=== PATIENT | female | born 1945 | race Caucasian/White ===

== ENCOUNTER 2023-07-14 07:11 | Inpatient (IN) | payer OTHER ==
[~2023-07-14] VITALS: Ht 157.5 cm; Wt 112.0 kg
[2023-07-14] VITALS (9 sets, daily range): BP systolic 117–153; BP diastolic 44–80; PULSE 86–116; RESP 12–19; TEMP 97.8–98.3; O2SAT 92–100
[~2023-07-14 07:11] MED LIST: ALPR0.254 PO; AMLO1TAB23 PO; CHOL500046 PO; HYDR200T36 PO; HYDR25TA4 PO; LEVO50CA3 PO; LISI-275 PO; MONT-8 OR; MULT-732 OR; PERCOT PO; PHENYLEPHRINE HCL 10 MG/ML VL IV ONE; PRED5PAK8; PROBTAB12 OR; QUET1TAB11 PO; SERT-289 PO; VITA-89 PO
[2023-07-14] MEDS ORDERED: MIDAZOLAM HCL 2MG/2ML 2ml VIAL (1mg/ml) ONE (11:02)
[2023-07-14] MEDS ORDERED: KETAMINE 50mg/ML 1ml syringe ONE (11:02)
[2023-07-14 11:40] LABS: Base Excess 0.1 mmol/L (-2.0-2.0)
[2023-07-14] MEDS ORDERED: fentaNYL CITRATE 100 MCG/2 ML VL ONE ×2 (11:57→12:31)
[2023-07-14] MEDS ORDERED: HYDROmorphone HCL 2 MG/ML VL/or syr ONE ×2 (11:57→15:25)
[2023-07-14] MEDS ORDERED: PROPOFOL 10 MG/ML 20 ML IV ONE (13:59)
[2023-07-14] MEDS ORDERED: SUGAMMADEX 200mg/2ml Vial (100MG/ML) IV ONE (14:38)
[2023-07-14] MEDS ORDERED: OXYCODONE W/ ACETAMINOPHEN 5/325MG TABLET PO SCH (15:00)
[2023-07-14] MEDS ORDERED: ePHEDrine SULFATE 50 MG/ML AMP IV PRN (15:15)
[2023-07-14] MEDS ORDERED: MORPHINE SULFATE 4 MG/ML SYR/VIAL IV PRN (15:15)
[2023-07-14] MEDS ORDERED: MIDAZOLAM HCL 2MG/2ML 2ml VIAL (1mg/ml) IV PRN (15:15)
[2023-07-14] MEDS ORDERED: LABETALOL HCL 5 MG/ML 4ML SYRINGE IV PRN (15:15)
[2023-07-14] MEDS: HYDROmorphone HCL 2 MG/ML VL/or syr IV PRN (15:28)
[2023-07-14] MEDS ORDERED: THROAT LOZENGES(CEPASTAT) MT PRN (15:30)
[2023-07-14] MEDS ORDERED: NITROGLYCERIN 0.4 MG SL TAB SL PRN (16:15)
[2023-07-14] MEDS: MORPHINE SULFATE INJ 2 MG/ml SYRG IV PRN (18:41)
[2023-07-14] MEDS: D5W/SOD CHLO 0.9% 1,000 ML IV SCH (18:42)
[2023-07-14] MEDS: LISINOPRIL 5 MG TAB PO SCH (18:42)
[2023-07-14] MEDS: DOCUSATE SOD 100 MG CAP PO SCH (21:52)
[2023-07-14] MEDS: hydrOXYchloroQUINE SULFATE 200 MG TAB PO SCH (21:52)
[2023-07-14] MEDS: CYCLOBENZAPRINE HCL 10 MG TAB PO SCH (21:52)
[2023-07-14] MEDS: HYDROcodone-ACET 10/325MG TAB PO PRN (21:52)
[2023-07-14] MEDS: SERTRALINE HCL 50 MG TAB PO SCH (21:52)
[2023-07-14] MEDS: ceFAZolin 1GM/50ML 50 ML IV SCH (21:56)
[2023-07-15] VITALS (16 sets, daily range): BP systolic 104–161; BP diastolic 40–71; PULSE 70–98; RESP 10–20; TEMP 97.9–99.8; O2SAT 92–97
[2023-07-15] MEDS: LEVOTHYROXINE SODIUM 50 MCG TAB PO SCH (05:50)
[2023-07-15 05:55] LABS: Basophils # (auto) 0 10 ^3/uL (0-0.2); Basophils % (auto) 0.1 % (0.0-2.0); Eosinophils # (auto) 0 10 ^3/uL (0-0.8); Hematocrit 32.9 % (36.0-46.0); Hemoglobin 10.7 g/dL (12.2-16.2); Lymphocytes # (auto) 0.6 10 ^3/uL (0.4-5.4); Lymphocytes % (auto) 5.1 % (10.0-50.0); Mean Corpuscular Hemoglobin 30.2 pg (28.0-32.0); Mean Corpuscular Hgb Conc. 32.6 g/dL (32.0-36.0); Mean Corpuscular Volume 92.6 fL (80.0-100.0); Monocytes # (auto) 0.7 10 ^3/uL (0-1.3); Monocytes % (auto) 5.9 % (0.0-12.0); Neutrophils # (auto) 9.9 10 ^3/uL (1.6-8.6); Neutrophils % (auto) 88.9 % (37.0-80.0); Red Blood Cells 3.55 10^6/uL (4.0-5.20); Red Cell Distribution Width 15.2 % (11.8-14.3); White Blood Cell 11.2 10^3/uL (4.4-10.8)
[2023-07-15 05:58] LABS: Chloride 102 mmol/L (98-107); Potassium 4.1 mmol/L (3.5-5.1); Sodium 132 mmol/L (136-145)
[2023-07-15 05:59] LABS: Anion Gap 4 (5-15); Carbon Dioxide 26 mmol/L (20-30)
[2023-07-15 06:00] LABS: Calcium 8.7 mg/dL (8.7-10.4)
[2023-07-15 06:04] LABS: Glucose 154 mg/dL (74-106)
[2023-07-15 06:05] LABS: BUN/Creatinine Ratio 12.7 (10.0-20.0); Blood Urea Nitrogen 9 mg/dL (9-23)
[2023-07-15] MEDS: amLODIPine BESYLATE 5 MG TAB PO SCH (09:55)
[2023-07-15] MEDS: predniSONE 5 MG TAB PO SCH (09:55)
[2023-07-15] MEDS: hydroCHLOROthiazide 25 MG TAB PO SCH (09:55)
[2023-07-15] MEDS: QUEtiapine FUMARATE 25 MG TAB PO SCH (09:55)
[2023-07-15] MEDS: levoFLOXacin 250MG 50 ML IV ONE (09:56)
[2023-07-15] MEDS: OXYCODONE W/ ACETAMINOPHEN 5/325MG TABLET PO PRN ×2 (11:04→15:18)
[2023-07-15] MEDS: CHOLECALCIFEROL (VITD3) 1,000UNIT=25mCg TAB PO SCH (12:00)
[2023-07-15] MEDS: MORPHINE SULFATE INJ 2 MG/ml SYRG IV PRN (13:19)
[2023-07-15] MEDS: ceFAZolin 2 GM/D5W50ml 50 ML IV ONE (14:47)
[2023-07-15] MEDS: TRANEXAMIC ACID 20 ML ONE (14:47)
[2023-07-15] MEDS: LIDOCAINE W/ EPINEPHRINE 1% 20ML VIAL ONE (14:47)
[2023-07-15] MEDS: ONDANSETRON HCL 4 MG/2 ML VIAL IV ONE (14:48)
[2023-07-15] MEDS: levoFLOXacin 500MG 100 ML IV ONE (14:48)
[2023-07-15] MEDS: SENNA 8.6 MG TAB PO SCH (20:50)
[2023-07-15 22:42] LABS: Urine Bacteria None Seen /hpf (None Seen)
[2023-07-15 22:52] LABS: Urine Blood TRACE /uL (Negative); Urine Clarity Clear (Clear); Urine Color Colorless (Yellow); Urine Protein, UAD Negative (Negative); Urine Specific Gravity 1.008 (1.001-1.035); Urine Urobilinogen Normal (Negative); Urine WBC <1 /hpf (0 - 5); Urine pH 5.5 (5.0-9.0)
[2023-07-16] VITALS (7 sets, daily range): BP systolic 106–158; BP diastolic 50–67; PULSE 85–118; RESP 16–20; TEMP 98–99.1; O2SAT 93–98
[2023-07-16] MEDS: ONDANSETRON HCL 4 MG/2 ML VIAL IV PRN (03:11)
[2023-07-16] MEDS: ACETAMINOPHEN 325 MG TAB PO PRN (03:48)
[2023-07-16] MEDS ORDERED: OXYC5CAP69 PO (04:02)
[2023-07-16 06:40] LABS: Anion Gap 6 (5-15); Carbon Dioxide 29 mmol/L (20-30); Chloride 99 mmol/L (98-107); Potassium 3.3 mmol/L (3.5-5.1); Sodium 134 mmol/L (136-145)
[2023-07-16 06:41] LABS: Basophils # (auto) 0 10 ^3/uL (0-0.2); Basophils % (auto) 0.1 % (0.0-2.0); Calcium 9.1 mg/dL (8.5-10.1); Eosinophils # (auto) 0 10 ^3/uL (0-0.8); Eosinophils % (auto) 0.1 % (0.0-7.0); Hematocrit 33.8 % (36.0-46.0); Hemoglobin 11.4 g/dL (12.2-16.2); Lymphocytes # (auto) 0.9 10 ^3/uL (0.4-5.4); Lymphocytes % (auto) 9.3 % (10.0-50.0); Mean Corpuscular Hemoglobin 31.7 pg (28.0-32.0); Mean Corpuscular Hgb Conc. 33.7 g/dL (32.0-36.0); Mean Corpuscular Volume 94.1 fL (80.0-100.0); Monocytes # (auto) 1.3 10 ^3/uL (0-1.3); Monocytes % (auto) 12.3 % (0.0-12.0); Neutrophils % (auto) 78.2 % (37.0-80.0); Red Blood Cells 3.59 10^6/uL (4.0-5.20); Red Cell Distribution Width 15.2 % (11.8-14.3); White Blood Cell 10.2 10^3/uL (4.4-10.8)
[2023-07-16 06:46] LABS: BUN/Creatinine Ratio 8.3 (10.0-20.0); Blood Urea Nitrogen 6 mg/dL (9-23); Glucose 142 mg/dL (74-106)
[2023-07-16] MEDS: OXYCODONE W/ ACETAMINOPHEN 5/325MG TABLET PO PRN (08:58)
[2023-07-16] MEDS ORDERED: LACTULOSE 20Gm/30ML SOLN PO PRN (12:30)
[2023-07-17] VITALS (7 sets, daily range): BP systolic 110–130; BP diastolic 54–58; PULSE 77–106; RESP 14–19; TEMP 97.7–98.1; O2SAT 93–96
[2023-07-18] VITALS (9 sets, daily range): BP systolic 111–143; BP diastolic 46–66; PULSE 77–116; RESP 14–19; TEMP 97.5–98.9; O2SAT 95–98
[2023-07-18] MEDS: TAMSULOSIN HYDROCHLORIDE 0.4 MG CAP PO ONE (11:08)
[2023-07-18] MEDS: MORPHINE SULFATE INJ 2 MG/ml SYRG IV PRN (18:38)
[2023-07-19] VITALS (9 sets, daily range): BP systolic 103–138; BP diastolic 50–61; PULSE 82–131; RESP 17–19; TEMP 97.7–98.6; O2SAT 94–97
[2023-07-19] MEDS: CARISOPRODOL 350 MG TAB PO SCH (13:13)
[2023-07-19] MEDS: HYDROmorphone HCL 2 MG TAB PO PRN (13:13)
[2023-07-19] MEDS: BETHANECHOL CHLORIDE 25 MG TAB PO SCH (14:00)
[2023-07-19] MEDS: TAMSULOSIN HYDROCHLORIDE 0.4 MG CAP PO SCH (17:42)
[2023-07-20] VITALS (9 sets, daily range): BP systolic 102–141; BP diastolic 60–65; PULSE 75–97; RESP 17–20; TEMP 97.4–98.4; O2SAT 93–96
[2023-07-20 07:06] LABS: Basophils # (auto) 0 10 ^3/uL (0-0.2); Basophils % (auto) 0.3 % (0.0-2.0); Eosinophils # (auto) 0.2 10 ^3/uL (0-0.8); Eosinophils % (auto) 2.1 % (0.0-7.0); Hematocrit 28.9 % (36.0-46.0); Hemoglobin 9.6 g/dL (12.2-16.2); Lymphocytes # (auto) 1.4 10 ^3/uL (0.4-5.4); Lymphocytes % (auto) 18.4 % (10.0-50.0); Mean Corpuscular Hemoglobin 31.3 pg (28.0-32.0); Mean Corpuscular Hgb Conc. 33.3 g/dL (32.0-36.0); Monocytes # (auto) 0.9 10 ^3/uL (0-1.3); Monocytes % (auto) 11.5 % (0.0-12.0); Neutrophils # (auto) 5.2 10 ^3/uL (1.6-8.6); Neutrophils % (auto) 67.7 % (37.0-80.0); Nucleated Red Blood Cells % 0.1 %; Red Blood Cells 3.07 10^6/uL (4.0-5.20); Red Cell Distribution Width 14.8 % (11.8-14.3); White Blood Cell 7.7 10^3/uL (4.4-10.8)
[2023-07-20 07:30] LABS: Chloride 97 mmol/L (98-107); Potassium 3.9 mmol/L (3.5-5.1); Sodium 133 mmol/L (136-145)
[2023-07-20 07:31] LABS: Anion Gap 3 (5-15); Calcium 9.1 mg/dL (8.7-10.4); Carbon Dioxide 33 mmol/L (20-30)
[2023-07-20 07:36] LABS: BUN/Creatinine Ratio 17.2 (10.0-20.0); Blood Urea Nitrogen 11 mg/dL (9-23); Glucose 105 mg/dL (74-106)
[2023-07-20 07:37] LABS: Magnesium 1.9 mg/dL (1.6-2.6)
[2023-07-21 01:00] VITALS: BP 143/65; PULSE 89; RESP 20; TEMP 98.5; O2SAT 94
[2023-07-21 05:00] VITALS: BP 121/63; PULSE 88; RESP 19; TEMP 98.2; O2SAT 96
[2023-07-21 08:00] VITALS: PULSE 80; PULSE 84; RESP 17
[2023-07-21 09:00] VITALS: BP 136/66; PULSE 85; RESP 17; TEMP 97.4; O2SAT 96
[2023-07-21 13:00] VITALS: BP 124/55; PULSE 80; RESP 17; TEMP 97.7; O2SAT 98
[2023-07-21 17:00] VITALS: BP 120/55; PULSE 76; RESP 18; TEMP 98.1; O2SAT 96
[2023-07-21] MEDS ORDERED: PERCOT PO (17:23)
== END 2023-07-21 18:30 | disposition home health service (06) | DRG 460 ==
LOC: SUR 07:11 → DOU IN ICU 16:15 → TELE-WESTW 07-15 15:40
PROVIDERS: ADMIT Orthopaedic Surgery; ATTEND Orthopaedic Surgery
PROC: 01NB0ZZ Release Lumbar Nerve, Open Approach (ICD-10-PCS; 2023-07-14)
PROC: 00NY0ZZ Release Lumbar Spinal Cord, Open Approach (ICD-10-PCS; 2023-07-14)
PROC: 4A11X4G Monitoring of Peripheral Nervous Electrical Activity, Intraoperative, External Approach (ICD-10-PCS; 2023-07-14)
PROC: 0SG00AJ Fusion of Lumbar Vertebral Joint with Interbody Fusion Device, Posterior Approach, Anterior Column, Open Approach (ICD-10-PCS; principal; 2023-07-14 11:55)
DX: M48.061 Spinal stenosis, lumbar region without neurogenic claudication (principal); F11.20 Opioid dependence, uncomplicated; M43.16 Spondylolisthesis, lumbar region; M51.16 Intervertebral disc disorders with radiculopathy, lumbar region; F32.A Depression, unspecified; F41.9 Anxiety disorder, unspecified; M06.9 Rheumatoid arthritis, unspecified; G89.4 Chronic pain syndrome; I10 Essential (primary) hypertension; Z79.899 Other long term (current) drug therapy; Z80.49 Family history of malignant neoplasm of other genital organs; Z82.0 Family history of epilepsy and other diseases of the nervous system
CPT/HCPCS: 36415; 36600; 72100; 76000; 80048; 81001; 82805; 82962; 83735; 85025; 86850; 86900; 86901; 87081; 97110; 97116; 97163; 97530; G0378; J1956; J2250; J2405; J2704